=== PATIENT | female | born 1990 | race Caucasian/White ===

== ENCOUNTER 2018-02-11 13:49 | Observation (INO) | payer SELFPAY ==
[2018-02-11] MEDS ORDERED: Ondansetron PF 4 MG/2 ML Vial ONE (14:11)
[2018-02-11] MEDS ORDERED: Morphine 2 MG/ML SYRINGE ONE ×2 (14:11→16:15)
[2018-02-11 14:12] LABS: #Basophils 0.1 thou/uL (0.0-0.2); #Eosinphils 0.3 thou/uL (0.0-0.7); #Lymphocytes 5.5 thou/uL (1.20-3.40); #Monocytes 0.8 thou/uL (0.11-0.59); %Basophils 1.1 % (0.0-1.0); %Eosinophils 2.7 % (0.0-10.0); %Monocytes 6.2 % (0.0-10.0); Hemoglobin 15.5 g/dL (12.0-16.0); Mean Corpuscular HGB CONC 34.7 g/dL (32.0-36.0); Mean Corpuscular Hemoglobin 30.8 pg (27.0-31.0); Mean Corpuscular Volume 88.7 fL (78.0-98.0); Platelet Count 368 thou/uL (130-400); RBC Distribution Width 11.6 % (11.5-14.5); Red Blood Cell (RBC) Count 5.05 mill/uL (4.20-5.40); White Blood Cell (WBC) Count 12.7 thou/uL (4.8-10.8)
[2018-02-11 14:13] LABS: BHCG - Serum Negative (NEGATIVE); Pregs Control Background? CLEAR/WHITE (CLR/WHITE); Pregs Control Bar Appear? YES (CONTROL BAR)
[2018-02-11 14:32] LABS: ALT (SGPT) 28 U/L (8-55); AST (SGOT) 21 U/L (5-34); Albumin 4.9 g/dL (3.5-5.0); Alkaline Phosphatase 97 U/L (40-150); Anion Gap 15 mmol/L (10-20); BUN (Urea Nitrogen) 12 mg/dL (7.0-18.7); Bilirubin, Total 0.4 mg/dL (0.2-1.2); CK (CPK) 45 U/L (29-168); Calc. Creatinine Clearance 0 mL/min (70-130); Calcium 10.2 mg/dL (7.8-10.44); Carbon Dioxide 18 mmol/L (22-29); Chloride 106 mmol/L (98-107); Estimated GFR-MDRD 76; Globulin 3.2 g/dL (2.4-3.5); Glucose 97 mg/dL (70-105); Lipase 43 U/L (8-78); Potassium 3.5 mmol/L (3.5-5.1); Protein, Total 8.1 g/dL (6.0-8.3); Sodium 135 mmol/L (136-145)
[2018-02-11 14:34] LABS: Bilirubin Negative (Negative); Blood, Urine Negative (Negative); Clarity CLEAR (Clear); Glucose, Urine (Dipstick) Negative (Negative); Leukocyte Trace (Negative); Nitrite Negative (Negative); Protein, Urine (Dipstick) Negative (Neg-Trace); Urobilinogen 0.2 mg/dL (0.2-1.0)
[2018-02-11 14:36] LABS: Bacteria/HPF None Seen HPF (None Seen); Hyaline Casts/LPF 0-3 HYALINE CAST LPF (0-3 Hyaline); Pathc Cast-AUWi Flag 0.43 (0-2.49); RBC/HPF 0-3 HPF (0-3); Squamous Epithelial 0-3 HPF (0-3); WBC/HPF 0-3 HPF (0-3)
[2018-02-11] MEDS ORDERED: Pantoprazole 40 MG VIAL ONE (15:07)
--- NOTE | 2018-02-11 15:19 | ULT ---
ULTRASOUND ABDOMEN RIGHT UPPER QUADRANT: Date: 02/11/18 HISTORY: Abdominal pain, nausea, and vomiting. COMPARISON: None. FINDINGS: Real-time Oliva scale and color evaluation of the abdomen was performed. Visualized portions of the pancreas, aorta, and IVC are unremarkable. Mild increased hepatic echotext ure. Liver measures 17.2 cm in length. Portal vein is patent with antegrade flow. Common bile duct is normal measuring 3.0 mm. Gallbladder is distended with cholelithiasis. Gallbladder wall thickness appears normal. Right kidney measures 10.1 x 3.7 x 4.8 cm. No renal mass, hydronephrosis, or abnormal calcifications. IMPRESSION: 1. Mildly dilated gallbladder containing cholelithiasis without wall thickening. Sonographic Lazar' s sign is negative. Findings can be seen with early cholecystitis or symptomatic cholelithiasis. 2. Diffuse increased hepatic echotexture suggesting steatosis. POS: [facility]
[2018-02-11] MEDS ORDERED: Ketorolac Tromethamine 30 MG/ML VIAL ONE (15:56)
[2018-02-11] MEDS ORDERED: MEROPENEM 1 GM/50 ML 1 GM in Premix Bag 1 BAG IVPB SCH (16:15)
[2018-02-11] MEDS ORDERED: Acetaminophen 1,000 MG in Premix Bag 1 BAG IVPB ONE (16:45)
[2018-02-11 18:09] LABS: Lactic Acid 0.8 mmol/L (0.5-2.2)
[2018-02-11] MEDS ORDERED: traMADol HCl 50 MG TAB PO PRN (18:29)
[2018-02-11] MEDS ORDERED: Ondansetron ODT 4 MG TAB PO PRN (18:30)
[2018-02-11] MEDS ORDERED: Dextrose 50% Abboject 50 ML SYRINGE SLOW IVP PRN (18:30)
[2018-02-11] MEDS ORDERED: Ondansetron PF 4 MG/2 ML Vial IVP PRN (18:30)
[2018-02-11] MEDS ORDERED: Dextrose 5% in Water 1,000 ML IV PRN (18:30)
[2018-02-11] MEDS ORDERED: Acetaminophen 500 MG TAB PO SCH (18:45)
[2018-02-11] MEDS ORDERED: traMADol HCl 50 MG TAB PO SCH (18:45)
[2018-02-11] MEDS ORDERED: Fentanyl 100 MCG/2 ML VIAL ONE (20:03)
[2018-02-11] MEDS ORDERED: HYDROmorphone 2 MG/ML VIAL ONE (20:04)
[2018-02-11] MEDS ORDERED: Bupivacaine/Epinephrine 0.25% 30 ML VIAL ONE (20:15)
[2018-02-11] MEDS: Famotidine/PF 20 mg/2ml Vial SLOW IVP SCH (21:01)
[2018-02-11 21:15] VITALS: BMI 29.7
--- NOTE | 2018-02-11 21:35 | HP ---
DATE OF ADMISSION: 02/11/2018 HISTORY OF PRESENT ILLNESS: This is a 28-year-old female who presented to [facility] with a chief complaint of right upper quadrant abdominal pain. The patient states that the pain bega n approximately 2:00 a.m. this morning. She describes it as a hunger pains typically relieved with r est and heating pads initially worsened with oral intake, but now she states her pain has become more unpredictable. The patient reports that this pain has been occurring multiple times for almost 1 ye ar. Over the last couple of months, she has noticed increased frequency of these painful episodes as sociated with diarrhea and bloating. Upon my evaluation, she states her pain is 10/10 and she is wri thing in bed. ALLERGIES: LATEX. HOME MEDICATIONS: Zantac p.r.n. CHRONIC MEDICAL ILLNESSES: GERD. PAST SURGICAL HISTORY: Breast augmentation, bilateral foot surgery, and tonsillectomy. 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 Denies alcohol or illicit drug use. She is a pac k per day smoker x11 years. FAMILY HISTORY: The patient has a mother who also had a cholecystectomy, but otherwise denies chroni c, but family history of any chronic medical illnesses. REVIEW OF SYSTEMS: A 10-point review of systems was performed and essentially negative except as ind icated in the HPI. PHYSICAL EXAMINATION: VITAL SIGNS: Blood pressure 100/68, pulse 61, respiration 18, O2 sat 99% on room air. GENERAL: Resting in bed in mild distress secondary to pain. HEAD: Normocephalic, atraumatic. EYES: Pupils are PERRL. Extraocular movements are intact. NECK: Supple. Trachea is midline. PULMONARY: Normal work of breathing. Symmetric rise. CARDIOVASCULAR: Regular rate and rhythm, no obvious murmurs, rubs or gallops. ABDOMEN: Mildly distended and firm. Bowel sounds are positive. She does have right upper quadrant tenderness and positive Lazar sign with some evidence of rebound tenderness. There is no guarding o r rigidity. MUSCULOSKELETAL: Moves all extremities x4. NEUROLOGIC: No focal deficit is noted. LABORATORY FINDINGS: WBC 12.7, hemoglobin 15.5, hematocrit 44.8, platelet count 368. Sodium 135, po tassium 3.5, chloride 106, carbon dioxide 18, BUN 12, creatinine 0.88, glucose 97. Lactic acid 2.6, AST and ALT within normal limits. Total bilirubin 0.4. Serum test is negative. Urinalysi s is unremarkable except for trace leukocyte esterase, but no bacteria, no nitrites and no wbc's. RADIOGRAPHIC FINDINGS: Abdominal x-ray read by Radiology as having multiple gallstones with wall thi ckening. Common bile duct is within normal limits. ASSESSMENT: 1. Abdominal pain and nausea. 2. Acute cholecystitis with cholelithiasis. PLAN: Laparoscopic cholecystectomy with Dr. Hansen. The patient should remain n.p.o. at this time. Last oral intake was 10:00 a.m. this morning. Benefits and risks of surgery were discussed with the patient. Plan of care discussed with her and all questions were answered at the time of this dictati on. The patient has been discussed with Dr. Hansen who agrees with my assessment and plan. He will e valuate the patient shortly.
[2018-02-11] MEDS: Sodium Chloride 0.9% 1,000 ML IV SCH (22:15)
[2018-02-12] MEDS: Acetaminophen 500 MG TAB PO SCH ×2 (00:11→06:14)
[2018-02-12] MEDS: traMADol HCl 50 MG TAB PO SCH ×2 (00:12→06:15)
[2018-02-12] MEDS: Ketorolac Tromethamine 30 MG/ML VIAL IVP SCH ×2 (00:14→06:19)
[2018-02-12] MEDS: Sodium Chloride 0.9% 1,000 ML IV SCH (04:54)
[2018-02-12 07:38] VITALS: BP 115/55; TEMP 97.8
[2018-02-12] MEDS: Famotidine/PF 20 mg/2ml Vial SLOW IVP SCH (09:24)
[2018-02-12] MEDS ORDERED: Bupivacaine/Epinephrine 0.25% 30 ML VIAL ONE (10:04)
[2018-02-12] MEDS ORDERED: Fentanyl 100 MCG/2 ML VIAL ONE ×2 (10:35→13:43)
[2018-02-12] MEDS ORDERED: Midazolam HCl 2 mg/2 ml Vial ONE (11:07)
[2018-02-12] MEDS ORDERED: CEFAZOLIN 2 GM/50 ML BAG ONE (11:07)
[2018-02-12] MEDS ORDERED: traMADol HCl 50 MG TAB PO PRN ×2 (11:29)
--- NOTE | 2018-02-12 12:58 | OP ---
DATE OF OPERATION: 02/12/2018 PREOPERATIVE DIAGNOSES: Acute cholecystitis and cholelithiasis. POSTOPERATIVE DIAGNOSES: Acute cholecystitis and cholelithiasis. PROCEDURES PERFORMED: Laparoscopic cholecystectomy. SURGEON: Addy Hansen D.O. ANESTHESIA: General endotracheal. ESTIMATED BLOOD LOSS: 10 mL. FLUIDS GIVEN: 1000 mL crystalloids. SPONGE AND INSTRUMENT COUNT: Certified as correct x2. COMPLICATIONS: None apparent at the time of operation. INDICATIONS FOR PROCEDURE: A 28-year-old woman presented with recurrent epigastric to right upper qu adrant abdominal pain. Clinical and radiographic examination was consistent with acute cholecystitis with cholelithiasis for which patient was brought to the operating room for cholecystectomy. Findin gs are consistent with gallbladder in the usual anatomic location partially encased by omental adhesi ons. DESCRIPTION OF PROCEDURE: Informed consent obtained from the patient who was brought to the operatin g room and placed in supine position. Following general anesthesia, abdomen is sterilely prepped and draped in usual fashion. The skin below the umbilicus was infiltrated with 0.25% Marcaine with epin ephrine. A small curvilinear infraumbilical incision made using an 11 scalpel. Umbilical stalk gras ped with Sabiha's and elevated. Veress needle inserted through the incision and placed in the perito charles cavity through which the abdomen was insufflated with 2.5 liters of CO2 gas. Intraabdominal pre ssure was noted at 2 mmHg. Upper limit of pressure was set at 15 mmHg. Following abdominal insufflat ion, Veress needle was removed and replaced with a 5 mm trocar introduced using the Visiport under la paroscopy. Laparoscopy confirmed proper placement of the port, no injuries to underlying structures. Additional laparoscopy reveals gallbladder in the usual anatomic location partially encased by omen yanet adhesions. Under direct laparoscopy, a 12 mm epigastric and two 5 mm right lateral subcostal por ts were placed after the overlying skin was infiltrated with 0.25% Marcaine with epinephrine and appr opriate incisions made. The patient is placed in the reverse Trendelenburg position, rotated to her left. I introduced a Prestige grasper through the right lateral subcostal port grasping the fundus o f the gallbladder which was elevated cephalad. Omental adhesions were then taken off of the gallblad pancho. A second Prestige grasper introduced through the right medial subcostal port grasping the Hartm an's pouch which was retracted laterally. The cystic duct was carefully dissected free from surround ing structures at the triangle of Calot. The duct is divided between clips applying 2 clips proximal ly and 1 clip at the junction of the cystic duct and gallbladder. The cystic artery dissected free f rom surrounding structures and divided between clips in a similar fashion. Gallbladder surface remov ed from the liver bed using cautery with good hemostasis. Gallbladder was delivered of the abdominal cavity using an EndoCatch. Operative site inspected for good hemostasis. All clips remain in place , no bile stains present. Finding no other pathology, laparoscopy was terminated. Fascia of the epi gastric port was closed using 0 Vicryl suture and Endo closure device under laparoscopy. Abdomen was desufflated. All ports and instruments removed and accounted for. Skin incision closed using 4-0 M onocryl suture in subcuticular fashion. Dermabond was applied over incisional closure. The patient tolerated the operation without any apparent complication and was returned to recovery room in a satisfactory condition.
[2018-02-12] MEDS ORDERED: Ibuprofen 600 MG TAB PO SCH (14:00)
[2018-02-12] MEDS ORDERED: Ondansetron PF 4 MG/2 ML Vial ONE (14:24)
[2018-02-12] MEDS ORDERED: Glycopyrrolate 0.2 MG/ML 5 ML SYRINGE ONE (14:24)
[2018-02-12] MEDS ORDERED: Dexamethasone 20 MG/5 ML VIAL ONE (14:24)
[2018-02-12] MEDS ORDERED: Succinylcholine Chloride 20 MG/ML 10 ml SYRINGE FS ONE (14:24)
[2018-02-12] MEDS ORDERED: PROPOFOL 200 MG/20 ML VIAL ONE (14:24)
[2018-02-12] MEDS ORDERED: Lidocaine 1% PF 5 ML VIAL ONE (14:24)
== END 2018-02-12 17:40 | disposition home or self-care (01) ==
LOC: ERS 13:49 → INTOOBSV 17:55 → 3SE 17:55
PROVIDERS: ADMIT Surgery; ATTEND Surgery
PROC: 0FT44ZZ Resection of Gallbladder, Percutaneous Endoscopic Approach (ICD-10-PCS; principal; 2018-02-12)
DX: K80.12 Calculus of gallbladder with acute and chronic cholecystitis without obstruction (principal); K21.9 Gastro-esophageal reflux disease without esophagitis; Z91.040 Latex allergy status
CPT/HCPCS: 36415; 76705; 80053; 81003; 81015; 82550; 83605; 83690; 84703; 85025; 86140; 88304; 94760; 96361; 96365; 96367; 96374; 96375; 96376; C9113; G0378; J0131; J1100; J1170; J1885; J2001; J2185; J2250; J2270; J2405; J2704; J3010; Q0162; S0028

== ENCOUNTER 2018-02-17 05:48 | Inpatient (IN) | payer OTHER, SELFPAY ==
[2018-02-17] MEDS ORDERED: Morphine 4 MG/ML VIAL ONE ×2 (06:15→08:18)
[2018-02-17] MEDS ORDERED: Ondansetron PF 4 MG/2 ML Vial ONE (06:15)
[2018-02-17 06:48] LABS: BHCG - Serum Negative (NEGATIVE); Hemoglobin 16.7 g/dL (12.0-16.0); Mean Corpuscular HGB CONC 34.8 g/dL (32.0-36.0); Mean Corpuscular Hemoglobin 29.9 pg (27.0-31.0); Mean Corpuscular Volume 85.9 fL (78.0-98.0); Mean Platelet Volume 7.1 fL (7.4-10.4); Platelet Count 399 thou/uL (130-400); Pregs Control Background? CLEAR/WHITE (CLR/WHITE); Pregs Control Bar Appear? YES (CONTROL BAR); RBC Distribution Width 11.5 % (11.5-14.5); Red Blood Cell (RBC) Count 5.56 mill/uL (4.20-5.40)
[2018-02-17 06:50] LABS: White Blood Cell (WBC) Count 28.5 thou/uL (4.8-10.8)
[2018-02-17 06:56] LABS: ALT (SGPT) 66 U/L (8-55); AST (SGOT) 33 U/L (5-34); Alkaline Phosphatase 117 U/L (40-150); Anion Gap 21 mmol/L (10-20); BUN (Urea Nitrogen) 14 mg/dL (7.0-18.7); Bilirubin, Total 1.7 mg/dL (0.2-1.2); Calc. Creatinine Clearance 0 mL/min (70-130); Calcium 10.6 mg/dL (7.8-10.44); Carbon Dioxide 13 mmol/L (22-29); Chloride 102 mmol/L (98-107); Estimated GFR-MDRD 74; Globulin 3.9 g/dL (2.4-3.5); Glucose 107 mg/dL (70-105); Lipase 14 U/L (8-78); Potassium 4.4 mmol/L (3.5-5.1); Protein, Total 8.9 g/dL (6.0-8.3); Sodium 132 mmol/L (136-145)
[2018-02-17 07:08] LABS: Band 3 % (5-11); Lymphocytes 5 % (21-51); MDiff Complete? YES; Monocytes 2 % (0-10); Neutrophil 90 % (42-75); Polychromasia SLIGHT = 2-3 cells (100X) (0-2/hpf)
--- NOTE | 2018-02-17 07:51 | CT ---
CT ABDOMEN AND PELVIS WITH IV CONTRAST: Date: 02/17/18 HISTORY: Abdominal pain, constipation, recent cholecystectomy. Vomiting. FINDINGS: The lung bases are clear. The liver, spleen, pancreas, adrenal glands, and kidneys are normal. Change s of cholecystectomy are noted. No abnormal biliary ductal dilatation is seen. No free air or lymphad enopathy identified in the abdomen or pelvis. A small amount of free fluid is noted in the pelvis. No abnormally loculated fluid collection is noted. There is a 17.0 mm right ovarian cyst with enhancing granulated margins consistent with corpus luteum. A normal appearing appendix is noted. There is fec al material in the colon. IMPRESSION: 1. Right ovarian corpus luteal cyst and a small amount of free fluid in the pelvis. 2. Constipation. POS: [facility]
[2018-02-17] MEDS ORDERED: Dextrose 5% in Water 1,000 ML IV PRN (08:08)
[2018-02-17] MEDS ORDERED: Dextrose 50% Abboject 50 ML SYRINGE SLOW IVP PRN (08:08)
[2018-02-17] MEDS ORDERED: Ondansetron PF 4 MG/2 ML Vial IVP PRN (08:08)
[2018-02-17] MEDS ORDERED: Promethazine HCl 25 MG/ML VIAL IM PRN (08:08)
[2018-02-17] MEDS ORDERED: Ondansetron ODT 4 MG TAB PO PRN (08:08)
[2018-02-17] MEDS ORDERED: traMADol HCl 50 MG TAB PO PRN ×2 (08:12)
[2018-02-17] MEDS ORDERED: Ibuprofen 600 MG TAB PO PRN (08:12)
[2018-02-17] MEDS ORDERED: Magnesium Oxide 400 MG TAB PO SCH (08:15)
[2018-02-17] MEDS ORDERED: Promethazine HCl 25 MG/ML VIAL ONE (08:22)
[2018-02-17 09:28] LABS: Bilirubin Negative (Negative); Blood, Urine Negative (Negative); Clarity CLEAR (Clear); Glucose, Urine (Dipstick) Negative (Negative); Leukocyte Negative (Negative); Nitrite Negative (Negative); Protein, Urine (Dipstick) Negative (Neg-Trace)
[2018-02-17] MEDS ORDERED: Magnesium Citrate 300 ML BOT PO SCH (09:30)
[2018-02-17] MEDS ORDERED: Glycerin Adult Supp. (12 ct jar) PR SCH (09:30)
[2018-02-17 09:35] LABS: Specific Gravity, Urine 1.063 (1.002-1.036)
--- NOTE | 2018-02-17 09:52 | RAD ---
RADIOGRAPH CHEST 1 VIEW RADIOGRAPH ABDOMEN 2 VIEWS: HISTORY: 28-year-old female with abdominal pain, nausea, vomiting, and lack of bowel movement. FINDINGS: There are no air space densities or pulmonary edema. The lateral costophrenic angles are sharp. The re is no evidence of pneumothorax or pneumoperitoneum. Cardiac size is normal. There is no evidence of dilated small bowel loops. There are no differential air/fluid levels. Cholecystectomy clips are noted in the right upper quadrant. There are a few air fluid levels within nondilated bowel loops. IMPRESSION: 1. No acute pulmonary findings. 2. No evidence of bowel obstruction. geoffrey martinez POS: [facility]
[2018-02-17] MEDS: Sodium Chloride 0.9% 1,000 ML IV SCH ×2 (11:34→20:11)
[2018-02-17] MEDS: Acetaminophen 500 MG TAB PO SCH ×3 (11:35→20:12)
[2018-02-17 12:14] LABS: Lactic Acid 1.4 mmol/L (0.5-2.2)
[2018-02-17] MEDS ORDERED: ISOVUE-370 76%-LOCM 1 ML ONE (12:40)
[2018-02-17] MEDS ORDERED: Ketorolac Tromethamine 30 MG/ML VIAL ONE (12:50)
[2018-02-17 13:04] VITALS: BMI 30.3
[2018-02-17] MEDS ORDERED: Ketorolac Tromethamine 30 MG/ML VIAL IVP SCH (13:15)
[2018-02-17] MEDS ORDERED: Artificial Tear Sol 15 ML BOT EA EYE PRN (15:48)
--- NOTE | 2018-02-17 17:55 | HP ---
DATE OF ADMISSION: 02/17/2018 ATTENDING SURGEON: Dr. Hansen. HISTORY OF PRESENT ILLNESS: Zayra Jang is a 28-year-old female who is status post laparoscopic c holecystectomy with Dr. Hansen on 02/12/2018. The patient presented to the emergency room this [facility] with a chief complaint of abdominal pain, constipation, nausea, and vomiting. Patient states that she has not had a bowel movement since prior to surgery. Abdominal pain has been gradually worsening . She was seen and evaluated in the emergency room and found to have elevated white count with 3% ba nds and 90% neutrophils. CT scan was concerning for constipation. Additionally, her bilirubin has r isen to 1.7 from 0.4 on her previous admission. We were asked to admit patient for further evaluatio n and management. ALLERGIES: LATEX. HOME MEDICATIONS: Zantac p.r.n., Tylenol, ibuprofen and Ultram 50 mg q.6 hours p.r.n. CHRONIC MEDICAL ILLNESSES: GERD. PAST SURGICAL HISTORY: Includes breast augmentation, bilateral foot surgery, tonsillectomy and kalia cystectomy. 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 She denies alcohol or illicit drug use. She is a 1 pack per day smoker x11 years. FAMILY HISTORY: Patient denies any family history of any chronic medical illnesses. REVIEW OF SYSTEMS: A 10-point review of systems was performed and negative except as indicated in th e HPI. PHYSICAL EXAMINATION: VITAL SIGNS: Temperature 97.7, pulse 58, respirations 21, O2 sat 100% on room air, blood pressure 11 4/54. GENERAL: Young female in no acute distress, ill appearing, resting in bed. PULMONARY: Normal work of breathing, symmetric rise. CARDIOVASCULAR: Regular rate and rhythm. GASTROINTESTINAL: Abdomen is soft with generalized and mild tenderness to palpation. Surgical sites are clean, dry, and intact. Bowel sounds are hypoactive. MUSCULOSKELETAL: Moves all extremities x4. NEUROLOGIC: No focal deficit is noted. LABORATORY DATA: WBC 28.5, hemoglobin 16.7, hematocrit 47.8 and platelet count 399. Sodium 132, pot assium 4.4, chloride 102, carbon dioxide 13, BUN 14, creatinine 0.90, glucose 107, calcium 10.6, tota l bilirubin 1.7, AST 33, ALT 66, alkaline phosphatase 117, lactic acid 3.3. Serum test is negative. Urinalysis demonstrated some ketonuria, but was otherwise unremarkable. RADIOGRAPHIC FINDINGS: CT of the abdomen and pelvis was read by Radiology as constipation without ev idence of fluid collection or identifiable intra-abdominal abscess. X-ray of the abdomen demonstrate d nonspecific bowel gas pattern without evidence of acute bowel obstruction. ASSESSMENT: 1. Constipation. 2. Abdominal pain, nausea, and vomiting, likely secondary to above. 3. Leukocytosis, possibly secondary to above. PLAN: Admit for observation and closer monitoring. The patient will receive rectal suppositories an d magnesium citrate as she has already tried stool softeners and laxatives at home. Encourage mobili ty, incentive spirometry and pulmonary toileting. Plan for admission was discussed with the patient at bedside and all questions were answered at the time of this dictation. The patient was seen and e valuated with Dr. Hansen.
[2018-02-17] MEDS ORDERED: Enoxaparin Sodium 40 MG/0.4 ML SYRINGE SC SCH (21:00)
[2018-02-18] MEDS: Acetaminophen 500 MG TAB PO SCH ×2 (01:58→08:59)
[2018-02-18 04:43] LABS: #Basophils 0.1 thou/uL (0.0-0.2); #Eosinphils 0.4 thou/uL (0.0-0.7); #Lymphocytes 3.7 thou/uL (1.20-3.40); #Neutrophils 9.9 thou/uL (1.40-6.50); %Basophils 0.6 % (0.0-1.0); %Eosinophils 2.4 % (0.0-10.0); %Lymphocytes 24.4 % (21.0-51.0); %Monocytes 6.3 % (0.0-10.0); %Neutrophils 66.3 % (42.0-75.0); Hemoglobin 13.1 g/dL (12.0-16.0); Mean Corpuscular HGB CONC 33.8 g/dL (32.0-36.0); Mean Corpuscular Hemoglobin 29.7 pg (27.0-31.0); Mean Corpuscular Volume 87.9 fL (78.0-98.0); Mean Platelet Volume 7.2 fL (7.4-10.4); Platelet Count 318 thou/uL (130-400); RBC Distribution Width 11.6 % (11.5-14.5); Red Blood Cell (RBC) Count 4.42 mill/uL (4.20-5.40)
[2018-02-18 04:57] LABS: Phosphorus 2.6 mg/dL (2.3-4.7)
[2018-02-18 05:02] LABS: ALT (SGPT) 40 U/L (8-55); AST (SGOT) 19 U/L (5-34); Albumin 3.8 g/dL (3.5-5.0); Alkaline Phosphatase 79 U/L (40-150); Anion Gap 11 mmol/L (10-20); BUN (Urea Nitrogen) 9 mg/dL (7.0-18.7); Bilirubin, Total 1.2 mg/dL (0.2-1.2); Calc. Creatinine Clearance 109 mL/min (70-130); Calcium 8.7 mg/dL (7.8-10.44); Carbon Dioxide 19 mmol/L (22-29); Chloride 109 mmol/L (98-107); Estimated GFR-MDRD 86; Globulin 2.5 g/dL (2.4-3.5); Glucose 115 mg/dL (70-105); Magnesium 2.6 mg/dL (1.6-2.6); Potassium 3.9 mmol/L (3.5-5.1); Protein, Total 6.3 g/dL (6.0-8.3); Sodium 135 mmol/L (136-145)
[2018-02-18] MEDS: Sodium Chloride 0.9% 1,000 ML IV SCH (05:44)
[2018-02-18 11:37] VITALS: BP 114/75; TEMP 98.3
--- NOTE | 2018-02-19 00:09 | DIS ---
DATE OF ADMISSION: 02/17/2018 DATE OF DISCHARGE: 02/18/2018 ADMITTING PHYSICIAN: Addy Hansen DO DISCHARGING PHYSICIAN: Addy Hansen DO ADMITTING DIAGNOSES: 1. Constipation. 2. Hyperbilirubinemia. DISCHARGING DIAGNOSES: 1. Constipation. 2. Abdominal pain. 3. Hyperbilirubinemia, resolved. 4. Leukocytosis, resolving. HISTORY OF PRESENT ILLNESS: Ms. Jang is a 28-year-old female who is status post laparoscopic cholecystectomy on 02/12/2018. The patient subsequently was discharged home and she states that her pain was generally well controlled; however, on the morning of 02/17/2018, presented to the Emergency Department with a chief complaint of abdominal pain, constipation, nausea, and vomiting. She states she has not had a bowel movement since prior to the surgery. Abdominal pain is getting progressively worse. She was noted to have leukocytosis with leftward shift. CT scan was concerning for constipation. She also had a mild bilirubinemia at 1.7. HOSPITAL COURSE: The patient was admitted to the [facility]. She was given bowel regimen, suppositories, and pain control as needed. The patient's repeat blood work shows a resolving leukocytosis, improving bilirubin, and her vital signs remained stable. The patient tolerated her diet and had a bowel movement. The patient is feeling somewhat better, still has some slight abdominal pain, but not requiring any medication. The patient has medications at home. She is passing flatus. She is ambulatory on the date of discharge. DISCHARGE MEDICATIONS: Tylenol 1 gram every 6 hours as needed and Zantac 150 mg as needed. PHYSICAL EXAMINATION: On the date of discharge, VITAL SIGNS: Temperature was 98.3, blood pressure was 114/75, heart rate was 78. She was breathing 12 times a minute and saturating 99% on room air. GENERAL: This is a 28-year-old female sitting up in bed in no acute distress. HEENT: Normocephalic, atraumatic. Trachea is midline. NECK: No JVD is appreciated. RESPIRATORY: Equal rise and fall bilaterally. Breath sounds were clear to auscultation in upper and lower lobe bilaterally. CARDIOVASCULAR: Regular rate and rhythm. ABDOMEN: Large, slightly obese, but is soft. No grimace, no masses, no distention. She does have positive bowel sounds. MUSCULOSKELETAL: Moves all extremities well. NEUROLOGIC: Alert and oriented to person, place, time, and event. PSYCHIATRIC: Normal mood and affect. SKIN: [place], warm, and dry. LABORATORY DATA: From today shows a sodium of 135, potassium 3.9, chloride is 109, BUN is 9, creatinine is 0.79, glucose is 115, total bilirubin is 1.2, AST and ALT are 19 and 40 respectively with alkaline phosphatase of 79. White blood cell count of 15,000 with no leftward shift appreciated. Hemoglobin and hematocrit 13.1 and 38.8 respectively, platelets are 318. DISCHARGE PLAN: Home with pain control as needed. Needs follow up in the [facility]uma [facility]. Initially has an appointment for 2017, we are going to move that to 02/27/2018 if possible. The patient was advised of the same. We have given the patient strict return precautions as needed and she has verbalized understanding of the same. We have answered all questions at the patient's bedside. Greater than 40 minutes was taken in preparation of discharging Ms. Herzog ANA ROSA
== END 2018-02-18 11:45 | disposition home or self-care (01) | DRG 392 ==
LOC: ERS 05:48 → SURG A 11:16
PROVIDERS: ADMIT Surgery; ATTEND Surgery
DX: K59.00 Constipation, unspecified (principal); D72.829 Elevated white blood cell count, unspecified; Z79.899 Other long term (current) drug therapy; Z79.891 Long term (current) use of opiate analgesic; Z91.040 Latex allergy status; K21.9 Gastro-esophageal reflux disease without esophagitis; F17.210 Nicotine dependence, cigarettes, uncomplicated; E80.6 Other disorders of bilirubin metabolism
CPT/HCPCS: 36415; 74022; 74177; 80053; 81003; 83605; 83690; 83735; 84100; 84703; 85025; 87040; 96361; 96365; 96366; 96375; 96376; J1650; J1885; J2270; J2405; J2550

== ENCOUNTER 2018-03-02 20:42 | Emergency (ER) | payer SELFPAY ==
[2018-03-02 21:11] LABS: #Basophils 0.1 thou/uL (0.0-0.2); #Eosinphils 0.8 thou/uL (0.0-0.7); #Lymphocytes 3.9 thou/uL (1.20-3.40); #Monocytes 1.1 thou/uL (0.11-0.59); #Neutrophils 10.8 thou/uL (1.40-6.50); %Basophils 0.5 % (0.0-1.0); %Eosinophils 4.7 % (0.0-10.0); %Lymphocytes 23.3 % (21.0-51.0); %Monocytes 6.8 % (0.0-10.0); %Neutrophils 64.7 % (42.0-75.0); Hemoglobin 15.4 g/dL (12.0-16.0); Mean Corpuscular Hemoglobin 31.2 pg (27.0-31.0); Mean Corpuscular Volume 86.7 fL (78.0-98.0); Mean Platelet Volume 6.8 fL (7.4-10.4); Platelet Count 420 thou/uL (130-400); RBC Distribution Width 11.3 % (11.5-14.5); Red Blood Cell (RBC) Count 4.93 mill/uL (4.20-5.40); White Blood Cell (WBC) Count 16.7 thou/uL (4.8-10.8)
[2018-03-02 21:33] LABS: Bilirubin Negative (Negative); Blood, Urine Negative (Negative); Clarity CLEAR (Clear); Glucose, Urine (Dipstick) Negative (Negative); Leukocyte Negative (Negative); Nitrite Negative (Negative); Protein, Urine (Dipstick) Negative (Neg-Trace); Specific Gravity, Urine 1.012 (1.002-1.036)
[2018-03-02 21:33] LABS: ALT (SGPT) 23 U/L (8-55); AST (SGOT) 18 U/L (5-34); Albumin 4.7 g/dL (3.5-5.0); Alkaline Phosphatase 117 U/L (40-150); Anion Gap 15 mmol/L (10-20); BUN (Urea Nitrogen) 8 mg/dL (7.0-18.7); Bilirubin, Total 1.3 mg/dL (0.2-1.2); Calc. Creatinine Clearance 0 mL/min (70-130); Calcium 10.1 mg/dL (7.8-10.44); Carbon Dioxide 17 mmol/L (22-29); Chloride 106 mmol/L (98-107); Estimated GFR-MDRD 80; Globulin 3.7 g/dL (2.4-3.5); Glucose 97 mg/dL (70-105); Potassium 3.9 mmol/L (3.5-5.1); Protein, Total 8.4 g/dL (6.0-8.3); Sodium 134 mmol/L (136-145)
[2018-03-02] MEDS ORDERED: methylPREDNISolone Sod Succ/PF 125 MG/2 ML VIAL ONE (21:54)
[2018-03-02] MEDS ORDERED: Water For Inject, Bacteriostat 30 ML ONE (21:55)
--- NOTE | 2018-03-02 22:02 | RAD ---
TWO VIEWS OF THE CHEST: 03/02/18 COMPARISON: None. HISTORY: Shortness of breath for six hours. Patient had bladder surgery one to two weeks ago. FINDINGS: Two views of the chest show normal sized cardiomediastinal silhouette. There is no evidence of consol idation, mass, or pleural effusion. The bones are unremarkable. IMPRESSION: No evidence of acute cardiopulmonary disease. POS: [facility]
== END 2018-03-02 23:42 | disposition home or self-care (01) ==
LOC: ERS 20:42
DX: J20.9 Acute bronchitis, unspecified (principal); F17.210 Nicotine dependence, cigarettes, uncomplicated
CPT/HCPCS: 71046; 80053; 81003; 83605; 85025; 87040; 87086; 94760; 96374; J2930; J7620

== ENCOUNTER 2018-05-22 14:37 | Emergency (ER) | payer MEDICAID, OTHER ==
[2018-05-22 15:27] LABS: Bilirubin Negative (Negative); Blood, Urine Negative (Negative); Clarity CLOUDY (Clear); Glucose, Urine (Dipstick) Negative (Negative); Leukocyte Large (Negative); Nitrite Negative (Negative); Protein, Urine (Dipstick) Negative (Neg-Trace); Specific Gravity, Urine 1.021 (1.002-1.036); Urobilinogen 0.2 mg/dL (0.2-1.0)
[2018-05-22 15:30] LABS: Bacteria/HPF None Seen HPF (None Seen); Hyaline Casts/LPF 0-3 HYALINE CAST LPF (0-3 Hyaline); Pathc Cast-AUWi Flag 0.72 (0-2.49); RBC/HPF 0-3 HPF (0-3)
[2018-05-22] MEDS ORDERED: Metoclopramide HCl 10 MG/2 ML VIAL ONE (15:36)
== END 2018-05-22 17:30 | disposition home or self-care (01) ==
LOC: ERS 14:37
DX: O21.0 Mild hyperemesis gravidarum (principal); O99.341 Other mental disorders complicating pregnancy, first trimester; F41.9 Anxiety disorder, unspecified; O99.331 Smoking (tobacco) complicating pregnancy, first trimester; Z3A.01 Less than 8 weeks gestation of pregnancy
CPT/HCPCS: 81003; 81015; 87086; 96365; J2765

== ENCOUNTER 2018-07-09 06:57 | Emergency (ER) | payer MEDICAID, OTHER ==
[2018-07-09 09:08] LABS: #Basophils 0.1 thou/uL (0.0-0.2); #Eosinphils 0.1 thou/uL (0.0-0.7); #Lymphocytes 3.1 thou/uL (1.20-3.40); #Monocytes 0.8 thou/uL (0.11-0.59); #Neutrophils 10.5 thou/uL (1.40-6.50); %Basophils 0.4 % (0.0-1.0); %Monocytes 5.5 % (0.0-10.0); %Neutrophils 72.1 % (42.0-75.0); Hemoglobin 12.4 g/dL (12.0-16.0); Mean Corpuscular HGB CONC 35.8 g/dL (32.0-36.0); Mean Corpuscular Hemoglobin 31.1 pg (27.0-31.0); Platelet Count 290 thou/uL (130-400); RBC Distribution Width 11.7 % (11.5-14.5); Red Blood Cell (RBC) Count 3.99 mill/uL (4.20-5.40); White Blood Cell (WBC) Count 14.6 thou/uL (4.8-10.8)
[2018-07-09 09:31] LABS: ALT (SGPT) 39 U/L (8-55); AST (SGOT) 17 U/L (5-34); Albumin 4.1 g/dL (3.5-5.0); Alkaline Phosphatase 78 U/L (40-150); Anion Gap 14 mmol/L (10-20); BUN (Urea Nitrogen) 7 mg/dL (7.0-18.7); Bilirubin, Total 0.8 mg/dL (0.2-1.2); Calc. Creatinine Clearance 0 mL/min (70-130); Calcium 9.6 mg/dL (7.8-10.44); Carbon Dioxide 16 mmol/L (22-29); Chloride 110 mmol/L (98-107); Estimated GFR-MDRD Greater than 90; Globulin 2.9 g/dL (2.4-3.5); Glucose 79 mg/dL (70-105); Potassium 3.4 mmol/L (3.5-5.1); Sodium 137 mmol/L (136-145)
[2018-07-09 10:47] LABS: Bilirubin Negative (Negative); Blood, Urine Negative (Negative); Glucose, Urine (Dipstick) Negative (Negative); Leukocyte Negative (Negative); Nitrite Negative (Negative); Protein, Urine (Dipstick) Negative (Neg-Trace); Specific Gravity, Urine 1.015 (1.005-1.030); Urobilinogen 0.2 mg/dL (0.2-1.0); pH, Urine 8.5 (5.0-9.0)
[2018-07-09 10:48] LABS: Clarity Clear (Clear)
== END 2018-07-09 11:40 | disposition home or self-care (01) ==
LOC: ERS 06:57
DX: O21.1 Hyperemesis gravidarum with metabolic disturbance (principal); E86.0 Dehydration; O99.342 Other mental disorders complicating pregnancy, second trimester; F41.9 Anxiety disorder, unspecified; O99.332 Smoking (tobacco) complicating pregnancy, second trimester; Z71.6 Tobacco abuse counseling; Z3A.15 15 weeks gestation of pregnancy
CPT/HCPCS: 36415; 80053; 81003; 82550; 85025; 96360; 96361; 99406

== ENCOUNTER 2018-07-31 09:26 | Emergency (ER) | payer OTHER ==
[2018-07-31] MEDS ORDERED: Ondansetron PF 4 MG/2 ML Vial ONE (10:03)
[2018-07-31 10:28] LABS: #Basophils 0.1 thou/uL (0.0-0.2); #Lymphocytes 2.6 thou/uL (1.20-3.40); #Monocytes 0.6 thou/uL (0.11-0.59); #Neutrophils 13.7 thou/uL (1.40-6.50); %Basophils 0.4 % (0.0-1.0); %Eosinophils 0.2 % (0.0-10.0); %Lymphocytes 15.3 % (21.0-51.0); %Monocytes 3.6 % (0.0-10.0); %Neutrophils 80.5 % (42.0-75.0); Hemoglobin 11.8 g/dL (12.0-16.0); Mean Corpuscular HGB CONC 33.6 g/dL (32.0-36.0); Mean Corpuscular Hemoglobin 29.2 pg (27.0-31.0); Mean Corpuscular Volume 86.7 fL (78.0-98.0); Mean Platelet Volume 7.3 fL (7.4-10.4); Platelet Count 332 thou/uL (130-400); RBC Distribution Width 11.8 % (11.5-14.5); Red Blood Cell (RBC) Count 4.03 mill/uL (4.20-5.40); White Blood Cell (WBC) Count 17.1 thou/uL (4.8-10.8)
[2018-07-31 10:38] LABS: ALT (SGPT) 30 U/L (8-55); AST (SGOT) 23 U/L (5-34); Albumin 4.1 g/dL (3.5-5.0); Alkaline Phosphatase 85 U/L (40-150); Anion Gap 17 mmol/L (10-20); BUN (Urea Nitrogen) 7 mg/dL (7.0-18.7); Bilirubin, Total 0.7 mg/dL (0.2-1.2); Calc. Creatinine Clearance 0 mL/min (70-130); Calcium 9.6 mg/dL (7.8-10.44); Carbon Dioxide 16 mmol/L (22-29); Chloride 106 mmol/L (98-107); Estimated GFR-MDRD Greater than 90; Glucose 89 mg/dL (70-105); Lipase 51 U/L (8-78); Potassium 3.3 mmol/L (3.5-5.1); Protein, Total 7.1 g/dL (6.0-8.3); Sodium 136 mmol/L (136-145)
--- NOTE | 2018-07-31 10:43 | ULT ---
US Abdomen Limited History: [Obstruction.] Comparison: CT abdomen and pelvis 2018 Findings: Real-time grayscale and color evaluation of the abdomen was performed. Right kidney measure s 11 x 3.8 x 4.4 cm. Liver is enlarged measuring 18.5 cm in length. Common bile duct is normal. Patient is with a heart rate of 1 41 bpm. There are dilated loops of bowel throughout the ab domen. Impression: Dilated loops of bowel throughout the abdomen. This can be seen with distal obstruction/c olonic stricture in a patient of this age from chronic inflammatory bowel disease.
[2018-07-31] MEDS ORDERED: Morphine 4 MG/ML VIAL ONE (11:26)
[2018-07-31 12:34] LABS: Bilirubin Negative (Negative); Blood, Urine Negative (Negative); Clarity CLEAR (Clear); Glucose, Urine (Dipstick) Negative (Negative); Leukocyte Trace (Negative); Nitrite Negative (Negative); Protein, Urine (Dipstick) 100 mg/dL (Neg-Trace); Specific Gravity, Urine 1.018 (1.002-1.036); Urobilinogen 0.2 mg/dL (0.2-1.0); pH, Urine 8.5 (5.0-9.0)
[2018-07-31 12:39] LABS: Bacteria/HPF None Seen HPF (None Seen); Hyaline Casts/LPF 4-6 HYALINE CAST LPF (0-3 Hyaline); Pathc Cast-AUWi Flag 0.81 (0-2.49); RBC/HPF 0-3 HPF (0-3); Squamous Epithelial 0-3 HPF (0-3)
[2018-07-31 12:51] LABS: Renal Epithelial None Seen HPF (0-3); Transitional Epithelial NONE SEEN HPF (0-3)
== END 2018-07-31 14:00 | disposition home or self-care (01) ==
LOC: ERS 09:26
DX: O99.612 Diseases of the digestive system complicating pregnancy, second trimester (principal); K59.00 Constipation, unspecified; O99.342 Other mental disorders complicating pregnancy, second trimester; F41.9 Anxiety disorder, unspecified; O99.332 Smoking (tobacco) complicating pregnancy, second trimester; F17.210 Nicotine dependence, cigarettes, uncomplicated; Z3A.19 19 weeks gestation of pregnancy
CPT/HCPCS: 76705; 80053; 81003; 81015; 83690; 85025; 96361; 96372; 96374; 96375; J0500; J2270; J2405

== ENCOUNTER 2018-08-31 10:00 | Day surgery (SDC) | payer OTHER ==
--- NOTE | 2018-08-31 12:23 | HP ---
PRIMARY OB: Seng Oviedo MD CHIEF COMPLAINT: Nausea and vomiting. HISTORY OF PRESENT ILLNESS: The patient is a 28-year-old, G1, P0 female with an intrauterine at 22 weeks and 2 days, who is presenting to Labor and Delivery with a few hours history of nausea and vomiting. The patient reports that she had one episode of diarrhea with one episode of retching and vomiting in conjunction this morning at about 8:30. The patient does report she is feeling a little bit better now, but was worried because she begins, she is also feeling abdominal cramping. She reports the cramping is diffuse and does not feel like uterine menstrual cramps, but feels like diffuse intestinal cramping. The patient does report she had an episode of diarrhea last night. She reports prior to this, she had ate breakfast casserole that she made couple days ago. She denies any sick contacts, fever, headache, chest pain, shortness of breath, any new rashes, bleeding or leaking fluid, or urinary urgency or frequency. She is having some ongoing GI problems and is scheduled to see a specialist in the near future. She has a longstanding history of constipation with this . PAST MEDICAL HISTORY: Negative. PAST SURGICAL HISTORY: She has had breast augmentation. She had feet surgery and cholecystectomy. PSYCHIATRIC HISTORY: Anxiety. SOCIAL HISTORY: The patient reports tobacco use. She smokes about a half pack per day and has been working to decrease that. Denies drug or alcohol use. MEDICATIONS: 1. vitamins. 2. MiraLAX. ALLERGIES: NO KNOWN DRUG ALLERGIES. OB LABS: Unavailable at time of dictation. REVIEW OF SYSTEMS: Per HPI. PHYSICAL EXAMINATION: VITAL SIGNS: Blood pressure of 101/62, heart rate of 59, respiratory rate of 18, saturating 99% on room air, and temperature of 98.1. GENERAL: She appears to be in no acute distress. She is alert, oriented, cooperative, and pleasant to interact with. HEAD: Normocephalic and atraumatic. LUNGS: Clear to auscultation bilaterally. HEART: She has a regular rate and rhythm. BACK: There is no CVA tenderness. No vertebral tenderness to palpation. ABDOMEN: Soft and gravid. There are normoactive bowel sounds to auscultation. EXTREMITIES: Nontender and nonedematous. : Exam has been deferred. Fetus has a baseline in the 130s with moderate long-term variability. ASSESSMENT AND PLAN: The patient is a 28-year-old female with nausea and vomiting this morning that seems to be isolated in nature and is feeling better now. The patient has no evidence of labor at this time. The patient has been given reassurance and is being discharged to home with instructions to follow up with Dr. Oviedo as scheduled. She has also been counseled to follow up with her GI specialist as recommended. We also counseled her to throw away the remaining portion of her breakfast casserole at home as this sounds to be the culprit of her symptoms. Job ID: [id number]
== END 2018-08-31 11:10 | disposition home or self-care (01) ==
LOC: L&D/OP 10:00
PROVIDERS: ATTEND Obstetrics & Gynecology
DX: O99.89 Other specified diseases and conditions complicating pregnancy, childbirth and the puerperium (principal); R11.2 Nausea with vomiting, unspecified; O99.342 Other mental disorders complicating pregnancy, second trimester; F41.9 Anxiety disorder, unspecified; F17.210 Nicotine dependence, cigarettes, uncomplicated; Z3A.22 22 weeks gestation of pregnancy
CPT/HCPCS: 99281

== ENCOUNTER 2019-01-01 19:16 | Inpatient (IN) | payer OTHER ==
[~2019-01-01 19:16] MED LIST: Bupivacaine 0.25% HCL 30 ML VIAL ONE; Bupivacaine PF 0.5% 30 ML VIAL ONE; Bupivacaine/Epinephrine 0.25% 30 ML VIAL ONE; Sodium Chloride 0.9% (PF) 10 ML VIAL ONE
[2019-01-01 19:59] VITALS: BMI 32.8
[2019-01-01] MEDS ORDERED: Carboprost 250 MCG/ML AMP IM PRN (20:11)
[2019-01-01] MEDS ORDERED: Promethazine HCl 25 MG/ML VIAL IM PRN (20:11)
[2019-01-01] MEDS ORDERED: Lidocaine 1% (PF) 30 ML VIAL SC PRN (20:11)
[2019-01-01] MEDS ORDERED: hydrALAZINE 20 MG/ML VIAL SLOW IVP PRN (20:11)
[2019-01-01] MEDS ORDERED: Methylergonovine 0.2 MG/ML VIAL IM PRN (20:11)
[2019-01-01] MEDS ORDERED: Ondansetron PF 4 MG/2 ML Vial IVP PRN (20:11)
[2019-01-01] MEDS ORDERED: Misoprostol 200 MCG TAB PR PRN (20:11)
[2019-01-01] MEDS ORDERED: Zolpidem Tartrate 5 MG TAB PO PRN (20:11)
[2019-01-01] MEDS ORDERED: Ibuprofen 800 MG TAB PO PRN (20:11)
[2019-01-01] MEDS ORDERED: NS / Oxytocin 40 units/1000ml 1,000 ML IV PRN (20:11)
[2019-01-01] MEDS ORDERED: HYDROcodone/Acetaminophen 5/325 mg Tablet PO PRN ×2 (20:11)
[2019-01-01] MEDS ORDERED: Diphenoxylate HCl/Atropine Tablet PO PRN ×2 (20:11)
[2019-01-01] MEDS ORDERED: Acetaminophen 500 MG TAB PO PRN (20:11)
--- NOTE | 2019-01-01 20:22 | PDOC.LDHP ---
Labor and Delivery H&P HPI: 28 y/o at 39 and 4/7 weeks presents for term elective induction. Due date: 01/04/19 Grav: 1 Para: 0 Current complications: none Abnormal US findings: No Current medications: pre-yvette vitamins Previous surgical history: none Allergies/Adverse Reactions: Allergies Allergy/AdvReac Type Severity Reaction Status Date / Time latex Allergy Verified 01/01/19 19:57 No Known Drug Allergies Allergy Verified 01/01/19 19:57 Social history: none - Physical Exam Vital signs reviewed and normal: yes General: NAD, resting Heart: RRR Lungs: CTAB Abdomen: gravid Extremeties: no edema FHT: category 1 - Assessment L&D Assessment: elective induction at term - Plan Plan: admit to L&D, cervical ripening
[2019-01-01] MEDS ORDERED: NS w/ Oxytocin 10 units 500 ML IV SCH (20:30)
[2019-01-01] MEDS: Lactated Ringer's 1,000 ML IV SCH (20:47)
[2019-01-01] MEDS: Misoprostol 100 MCG TAB VAG SCH ×2 (20:47→23:53)
[2019-01-01 21:04] LABS: Hemoglobin 10.6 g/dL (12.0-16.0); Mean Corpuscular HGB CONC 36.3 g/dL (32.0-36.0); Mean Corpuscular Hemoglobin 31.1 pg (27.0-31.0); Mean Corpuscular Volume 85.8 fL (78.0-98.0); Mean Platelet Volume 6.9 fL (7.4-10.4); Platelet Count 240 thou/uL (130-400); RBC Distribution Width 11.8 % (11.5-14.5); White Blood Cell (WBC) Count 14.5 thou/uL (4.8-10.8)
[2019-01-01 21:42] LABS: Syphilis Antibody Nonreactive (Nonreactive); Syphilis Antibody Index 0.03 S/CO (<1.00 Non-Reactive)
[2019-01-02] MEDS: Calcium Carbonate 500 MG ChewTAB PO SCH (00:25)
[2019-01-02 01:33] LABS: HBSAg Index 0.18 S/CO (0-0.99); Hep B Surf Ag Non-Reactive S/CO (NonReactive)
[2019-01-02] MEDS: Lactated Ringer's 1,000 ML IV SCH ×2 (05:14→16:34)
[2019-01-02] MEDS: Butorphanol Tartrate 1 MG/ML VIAL SLOW IVP PRN ×2 (05:19→08:35)
[2019-01-02] MEDS: Misoprostol 100 MCG TAB VAG SCH ×3 (08:21→14:04)
[2019-01-02] MEDS ORDERED: FLU VACC QS2019-20(6MOS UP)/PF 60 MCG/0.5 ML SYRINGE IM ONE (09:00)
[2019-01-02] MEDS ORDERED: Misoprostol 100 MCG TAB VAG SCH (12:30)
[2019-01-02] MEDS: NS w/ Oxytocin 10 units 500 ML IV SCH (16:33)
[2019-01-02] MEDS ORDERED: Fentanyl 4 mcg/Bup 0.1% Cadd 100 ML ONE (17:47)
[2019-01-02] MEDS ORDERED: diphenhydrAMINE 50 MG/ML VIAL IVP PRN (18:30)
[2019-01-02] MEDS ORDERED: Fentanyl 4 mcg/Bupivacaine 0.1% Cassette 100 ML EPIDURAL SCH (18:30)
[2019-01-02] MEDS ORDERED: Naloxone HCl 0.4 mg/ml Vial IVP PRN ×2 (18:30)
[2019-01-02] MEDS ORDERED: Acetaminophen 325 MG TAB PO PRN (18:30)
[2019-01-02] MEDS ORDERED: Ondansetron PF 4 MG/2 ML Vial IVP PRN (18:30)
[2019-01-02] MEDS ORDERED: Promethazine HCl 25 MG/ML VIAL IM PRN (18:30)
[2019-01-02] MEDS ORDERED: Communication Order-Pharmacy FS SCH (18:30)
[2019-01-02] MEDS ORDERED: Lactated Ringer's 500 ML IV PRN (18:30)
[2019-01-02] MEDS ORDERED: ePHEDrine/0.9% NaCl/PF SYRINGE 50 mg/10 ml SLOW IVP PRN (18:30)
[2019-01-03] MEDS ORDERED: Fentanyl 4 mcg/Bup 0.1% Cadd 100 ML ONE ×2 (02:35→09:23)
[2019-01-03] MEDS ORDERED: NS / Oxytocin 40 units/1000ml 1,000 ML ONE (11:19)
[2019-01-03] MEDS ORDERED: Misoprostol 200 MCG TAB VAG PRN (14:03)
[2019-01-03] MEDS ORDERED: Preparation H Ointment 28 GM TUBE PR PRN (14:03)
[2019-01-03] MEDS ORDERED: Promethazine HCl 25 MG/ML VIAL IM PRN (14:03)
[2019-01-03] MEDS ORDERED: Zolpidem Tartrate 5 MG TAB PO PRN (14:03)
[2019-01-03] MEDS ORDERED: Adacel (T-DAP) 0.5 ML SYRINGE IM ONE (14:03)
[2019-01-03] MEDS ORDERED: Methylergonovine 0.2 MG/ML VIAL IM PRN (14:03)
[2019-01-03] MEDS ORDERED: hydrALAZINE 20 MG/ML VIAL SLOW IVP PRN (14:03)
[2019-01-03] MEDS ORDERED: diphenhydrAMINE 25 MG CAP PO PRN (14:03)
[2019-01-03] MEDS ORDERED: Lanolin Ointment 7 GM TUBE TOP PRN (14:03)
[2019-01-03] MEDS ORDERED: Ondansetron PF 4 MG/2 ML Vial IVP PRN (14:03)
[2019-01-03] MEDS ORDERED: Milk Of Magnesia 30 ML UDCUP PO PRN (14:03)
[2019-01-03] MEDS ORDERED: Benzocaine-Menthol 82.5 ML CAN TOP PRN (14:03)
[2019-01-03] MEDS ORDERED: Varicella virus, LIVE 0.5 ML VIAL SC ONE (14:03)
[2019-01-03] MEDS ORDERED: NS / Oxytocin 40 units/1000ml 1,000 ML IV SCH (14:03)
[2019-01-03] MEDS ORDERED: HYDROcodone/Acetaminophen 5/325 mg Tablet PO PRN ×2 (14:03)
[2019-01-03] MEDS ORDERED: Bisacodyl 10 MG SUPP PR PRN (14:03)
[2019-01-03] MEDS: Ferrous Sulfate 325 MG TAB PO SCH (15:05)
[2019-01-03] MEDS: Calcium Carbonate 500 MG ChewTAB PO SCH (15:05)
[2019-01-03] MEDS: Misoprostol 100 MCG TAB VAG SCH ×5 (15:23→15:38)
[2019-01-03] MEDS: Lactated Ringer's 1,000 ML IV SCH ×3 (15:34→15:37)
[2019-01-03] MEDS: NS w/ Oxytocin 10 units 500 ML IV SCH (15:37)
[2019-01-03] MEDS: Ibuprofen 800 MG TAB PO SCH ×2 (16:08→22:10)
[2019-01-03] MEDS: Docusate Calcium (SURFAK) 240 MG CAP PO SCH (22:10)
--- NOTE | 2019-01-04 00:43 | PDOC.PP ---
Post Progress Note Post Day #: 1 PO intake tolerated: yes Flatus: yes Ambulation: yes Vital Signs (12 hours) Temp Pulse Resp BP Pulse Ox 01/03/19 19:49 97.7 F 78 16 115/72 98 01/03/19 16:30 98.1 F 77 18 122/71 01/03/19 15:36 98.3 F 90 16 116/63 96 01/03/19 14:30 98.0 F 71 18 124/72 01/03/19 14:15 98.0 F 81 20 127/74 97 Weight Weight 157 lb - Physical Examination General: NAD Cardiovascular: no m/r/g, RRR Respiratory: clear to auscultation bilaterally, non-labored breathing Abdominal: + bowel sounds, lochia, no distention, appropriately TTP Extremities: negative homans (B) Neurological: no gross focal deficits Psychiatric: A&Ox3, normal affect (Doin Well. DC home planned tomorrow on PPD #2 ) Result Diagrams: 01/01/19 20:43 Additional Labs: Post Labs Blood Type O POSITIVE 01/01/19 21:38 Hep Bs Antigen Non-Reactive S/CO (NonReactive) 01/01/19 20:44
--- NOTE | 2019-01-04 00:56 | DN ---
DATE OF PROCEDURE: 01/03/2019 TIME OF SERVICE: At 1223 hours, [place] Daylight Savings Time. PREOPERATIVE DIAGNOSIS: Intrauterine at 40 weeks and one day for elective full-term induction of labor. POSTOPERATIVE DIAGNOSIS: Intrauterine at 40 weeks and one day for elective full-term induction of labor. PROCEDURE PERFORMED: Spontaneous vaginal delivery over first-degree laceration of the perineum. FINDINGS: Viable female , weighing 3089 g or 6 pounds 13 ounces. Apgars 8 and 9. QUANTITATIVE BLOOD LOSS: 150 mL. COMPLICATIONS: None. PROCEDURE IN DETAIL: The patient presented to [facility] where she was admitted to the labor and delivery service. The patient underwent a normal and uneventful labor with normal cervical dilatation until she was found to be completely dilated. She was then allowed to push and was able to bring the baby down and delivered the baby in a vertex presentation without difficulties. Once the head delivered in occiput anterior position, the shoulders followed spontaneously along with the rest of the baby's body. Once out the baby's mouth and nose were bulb suctioned. The cord was clamped and cut and baby was handed to waiting attendants. Cord blood was collected. Gentle fundal massage was performed and the placenta delivered intact without problems. Hemostasis was assured. Quantitative blood loss was calculated. Inspection of the cervix, vaginal vault, and perineum did not reveal any lacerations needing suturing. Once again, hemostasis was within normal limits and the patient was allowed to recover in the labor and delivery room. Baby went to nursery. Job ID: [id number]
[2019-01-04] MEDS: Ibuprofen 800 MG TAB PO SCH ×3 (06:44→21:08)
[2019-01-04] MEDS: Ferrous Sulfate 325 MG TAB PO SCH ×2 (09:18→13:54)
[2019-01-04] MEDS: Docusate Calcium (SURFAK) 240 MG CAP PO SCH ×2 (09:19→21:08)
[2019-01-04] MEDS: Prenatal Vitamin 1 TAB PO SCH (09:19)
[2019-01-05] MEDS: Ibuprofen 800 MG TAB PO SCH ×2 (06:15→14:00)
[2019-01-05 08:19] VITALS: BP 134/75; TEMP 98.7
[2019-01-05] MEDS: Ferrous Sulfate 325 MG TAB PO SCH (08:58)
[2019-01-05] MEDS: Docusate Calcium (SURFAK) 240 MG CAP PO SCH (08:59)
[2019-01-05] MEDS: Prenatal Vitamin 1 TAB PO SCH (08:59)
== END 2019-01-05 16:20 | disposition home or self-care (01) | DRG 807 ==
LOC: L&D 19:16 → 3SW 01-03 14:23
PROVIDERS: ADMIT Obstetrics & Gynecology; ATTEND Obstetrics & Gynecology
PROC: 10E0XZZ Delivery of Products of Conception, External Approach (ICD-10-PCS; principal; 2019-01-04)
PROC: 3E0P7VZ Introduction of Hormone into Female Reproductive, Via Natural or Artificial Opening (ICD-10-PCS; 2019-01-04)
PROC: 3E033VJ Introduction of Other Hormone into Peripheral Vein, Percutaneous Approach (ICD-10-PCS; 2019-01-04)
PROC: 3E02340 Introduction of Influenza Vaccine into Muscle, Percutaneous Approach (ICD-10-PCS; 2019-01-05)
DX: O80 Encounter for full-term uncomplicated delivery (principal); Z37.0 Single live birth; Z3A.40 40 weeks gestation of pregnancy; Z23 Encounter for immunization
CPT/HCPCS: 36415; 51702; 85027; 86780; 86850; 86900; 86901; 87340; 90471; 90686; 90715; G0008; J0595; J2001; J2405; J2590; S0020

== ENCOUNTER 2019-01-06 21:37 | Inpatient (IN) | payer OTHER ==
[2019-01-06 22:21] LABS: #Eosinphils 0.2 thou/uL (0.0-0.7); #Lymphocytes 2.4 thou/uL (1.20-3.40); #Monocytes 0.8 thou/uL (0.11-0.59); #Neutrophils 7.3 thou/uL (1.40-6.50); %Basophils 0.4 % (0.0-1.0); %Lymphocytes 22.5 % (21.0-51.0); %Monocytes 7.2 % (0.0-10.0); Hemoglobin 9.5 g/dL (12.0-16.0); Mean Corpuscular HGB CONC 36.1 g/dL (32.0-36.0); Mean Corpuscular Hemoglobin 31.4 pg (27.0-31.0); Mean Platelet Volume 7.1 fL (7.4-10.4); Platelet Count 208 thou/uL (130-400); RBC Distribution Width 11.7 % (11.5-14.5); Red Blood Cell (RBC) Count 3.02 mill/uL (4.20-5.40); White Blood Cell (WBC) Count 10.7 thou/uL (4.8-10.8)
[2019-01-06 22:30] LABS: Bilirubin Negative (Negative); Blood, Urine 1+ (Negative); Clarity Clear (Clear); Glucose, Urine (Dipstick) Normal (Negative); Leukocyte 250 Leu/uL (Negative); Mucous/LPF 1+ LPF (<2+); Nitrite Negative (Negative); Protein, Urine (Dipstick) Negative (Neg-Trace); Squamous Epithelial 0-3 HPF (0-3); Urobilinogen Normal mg/dL (Less than 2); WBC/HPF 21-50 HPF (0-3)
[2019-01-06 22:37] LABS: ALT (SGPT) 30 U/L (8-55); AST (SGOT) 25 U/L (5-34); Albumin 3.1 g/dL (3.5-5.0); Alkaline Phosphatase 102 U/L (40-110); Anion Gap 12 mmol/L (10-20); BUN (Urea Nitrogen) 9 mg/dL (7.0-18.7); Bilirubin, Total 0.2 mg/dL (0.2-1.2); Calc. Creatinine Clearance 0 mL/min (70-130); Calcium 8.2 mg/dL (7.8-10.44); Carbon Dioxide 18 mmol/L (22-29); Chloride 109 mmol/L (98-107); Estimated GFR-MDRD 85; Globulin 2.4 g/dL (2.4-3.5); Glucose 89 mg/dL (70-105); Potassium 3.4 mmol/L (3.5-5.1); Protein, Total 5.5 g/dL (6.0-8.3); Sodium 136 mmol/L (136-145)
[2019-01-06 22:37] LABS: Bacteria/HPF Rare-Few HPF (None Seen)
[2019-01-06] MEDS ORDERED: hydrALAZINE 20 MG/ML VIAL ONE (23:07)
[2019-01-06] MEDS ORDERED: diphenhydrAMINE 12.5 MG/5 ML UDCUP ONE (23:08)
[2019-01-06] MEDS ORDERED: cefTRIAXone\\ROCEPHIN 2 GM VIAL ONE (23:08)
[2019-01-06] MEDS ORDERED: Ketorolac Tromethamine 30 MG/ML VIAL ONE (23:08)
[2019-01-06] MEDS ORDERED: Metoclopramide HCl 10 MG/2 ML VIAL ONE (23:08)
[2019-01-06] MEDS ORDERED: diphenhydrAMINE 50 MG/ML VIAL ONE (23:09)
[2019-01-06] MEDS ORDERED: Magnesium Sulfate 20 gm/500 ml 20 GM/500 ML BAG IVPB PRN (23:11)
[2019-01-06] MEDS ORDERED: Magnesium Sulfate 20 gm/500 ml 4 GM/100 ML BAG IVPB SCH (23:15)
--- NOTE | 2019-01-06 23:43 | ULT ---
EXAM: Bilateral lower extremity venous duplex: Deep veins evaluated with color Doppler, spectral analysis, and compression. INDICATIONS: Bilateral lower extremity pain and edema. FINDINGS: Deep veins interrogated include common femoral vein, femoral vein, popliteal vein, and post erior tibial vein. These veins show normal compression and blood flow. No evidence of DVT. IMPRESSION: Negative Bilateral venous duplex exam.
--- NOTE | 2019-01-06 23:55 | CT ---
CT head without contrast: Multiple axial tomograms obtained through the head without IV enhancement. INDICATIONS: Headache COMPARISON: None FINDINGS: Ventricles have normal size and position. No evidence of intracranial mass, hemorrhage, edema, or infarct. Visualized sinuses and mastoids appear clear. Bony calvarium appears unremarkable. IMPRESSION: No acute finding
[2019-01-07 02:22] VITALS: BMI 32.8
[2019-01-07] MEDS ORDERED: Acetaminophen 500 MG TAB PO PRN (05:30)
--- NOTE | 2019-01-07 07:44 | RAD ---
Chest one view HISTORY: Dyspnea. COMPARISON: 03/02/2018. FINDINGS: Cardiac silhouette is magnified by projection. Pulmonary vasculature unremarkable. Mediasti num is midline. Mild patchy bibasilar parenchymal opacity. No evidence of pneumothorax. No lobar consolidation. therapy coordinator leads overlie the chest. IMPRESSION: Mild bibasilar atelectasis. No active cardiopulmonary abnormalities are otherwise demonst rated.
[2019-01-07] MEDS ORDERED: Ibuprofen 800 MG TAB PO PRN (08:28)
[2019-01-07] MEDS ORDERED: Furosemide 20 MG/2 ML VIAL SLOW IVP SCH (08:30)
--- NOTE | 2019-01-07 14:19 | SS ---
DATE OF ADMISSION: 01/07/2019 DATE OF DISCHARGE: 01/07/2019 PRIMARY OB: Dr. Seng Oviedo. CHIEF COMPLAINT: Headache, back pain. HISTORY OF PRESENT ILLNESS: The patient is a 28-year-old female, day #3, status post a term spontaneous vaginal delivery, who is presenting to the emergency room with complaints of back pain, headache, and swelling. In her evaluation downstairs, she received a brain CT which was normal, venogram for DVT evaluation which was normal, chest x-ray which was normal. Labs for PIH workup, which all came back within normal limits and urinalysis negative for protein, positive for pyuria and few to rare bacteria and was noted to have CVA tenderness and have a severe range blood pressure, was diagnosed with pyelonephritis and preeclampsia and sent to Labor and Delivery for management. The patient, through the night, was on magnesium and on re-evaluation, the patient again confirmed she has come in for edema, for headache, and for back pain. She denied fever. Denied nausea or vomiting. Denied vision changes, paresthesias, bleeding, or worsening pain. PAST MEDICAL HISTORY: Reports an intestinal obstruction as a complication to cholecystectomy and anesthesia. PAST SURGICAL HISTORY: Again cholecystectomy, tonsillectomy, breast augmentation, and feet surgery. PSYCHIATRIC HISTORY: Anxiety. SOCIAL HISTORY: Former smoker. Denies drug or alcohol use. MEDICATIONS: None. ALLERGIES: LATEX. PHYSICAL EXAMINATION: VITAL SIGNS: Done in the emergency room, had a blood pressure of 163/78, 126/69, 156/81, 116/84. Here on the Labor and Delivery floor upon arrival, the patient's blood pressure was 127/77, heart rate of 82, respiratory rate 16, and temperature 98.3. GENERAL: She appears to be in no acute distress. She is alert, oriented, cooperative, and pleasant to interact with. She does appear to have swelling in her face and in her lower extremities. LUNGS: Clear to auscultation bilaterally. HEART: Has a regular rate and rhythm. ABDOMEN: Gravid and soft. EXTREMITIES: Nontender with 1+ pitting edema. MUSCULOSKELETAL: The patient has some right-sided paravertebral point tenderness in her upper lumbar region. She has no CVA tenderness on her left or her right side. Blood pressures throughout her stay here this evening have been primarily within the normal range with 1 teens to 130s over 60s to 70s. She did have one elevated pressure at 141/80. LABORATORY DATA: Again white count 10.7, hemoglobin 9.5, hematocrit 26.3, and platelets of 208,000, no left shift at 68% neutrophils. Urine positive for pyuria, 21 to 50 white blood cells, 4 to 6 red blood cells, 250 leukocyte esterase, 1+ blood, 4 to 6 hyaline casts, few to rare bacteria, no squamous cells. Chemistry; sodium 136, potassium 3.4, chloride 109, bicarb 18, BUN 9, creatinine 0.8, glucose 89, calcium 8.2. AST 25, ALT of 30, and alkaline phosphatase of 102. ASSESSMENT AND PLAN: The patient is a 28-year-old female, who presented with swelling, headache, and back pain. Back pain is reproducible with palpation seems to be a pulled muscle in her paravertebral region. Her headache is improving with caffeine consumption and she believes it was a result of not having caffeine as she usually does in the last 24 hours. She is post day #3, normal time for transition of her fluids and likely is part of that. With her IV and Gan in place, I have given her 20 IV of Lasix to facilitate some of this fluid shift. I have discontinued her magnesium as I do not see justifications for this treatment at this time. The patient has been given 2 g of Rocephin for this urinary tract infection. I have talked to her primary OB, Dr. Oviedo and have made a plan to discharge the patient at noon. If she continues to stay her current course, she has Keflex 500 mg twice a day #14 sent to her pharmacy on record. I have given instructions to the nursing staff if she exhibits any concerning symptoms or signs to notify her primary OB, Dr. Oviedo, who is managing any changes to her care. Otherwise, the patient will be discharged home with followup to be scheduled in a week. Job ID: [id number]
[2019-01-08] MEDS ORDERED: cefTRIAXone\\ROCEPHIN 1 GM in Sodium Chloride 0.9% 100 ML IVPB SCH (01:00)
== END 2019-01-07 12:38 | disposition home or self-care (01) | DRG 776 ==
LOC: ERS 21:37 → L&D/OP 01-07 00:53 → L&D 01-07 01:23
PROVIDERS: ADMIT Obstetrics & Gynecology; ATTEND Obstetrics & Gynecology
DX: O14.15 Severe pre-eclampsia, complicating the puerperium (principal); O86.21 Infection of kidney following delivery; F41.9 Anxiety disorder, unspecified; Z90.49 Acquired absence of other specified parts of digestive tract; Z87.891 Personal history of nicotine dependence; Z91.040 Latex allergy status
CPT/HCPCS: 36415; 70450; 71045; 80053; 81003; 81015; 83735; 85025; 87086; 93005; 93970; J0360; J0696; J1200; J1885; J1940; J2765; J3475; Q0163